=== PATIENT | female | born 1930 | race Caucasian/White ===

== ENCOUNTER 2016-05-31 11:11 | Outpatient (CLI) | payer MEDICARE ==
[2016-05-31] MEDS ORDERED: GADOBUTROL 7.5 MMOL/7.5 ML VIAL IVP ONE (12:45)
== END 2016-05-31 11:12 | disposition home or self-care (01) ==
DX: Z84.89 Family history of other specified conditions (principal); Z79.899 Other long term (current) drug therapy; Z80.3 Family history of malignant neoplasm of breast
CPT/HCPCS: 36415; 82565; A9585; C8908

== ENCOUNTER 2016-07-18 08:27 | Outpatient (CLI) | payer MEDICARE | END 2016-07-18 08:28 | disposition home or self-care (01) | DX: I10 Essential (primary) hypertension (principal); I48.91 Unspecified atrial fibrillation; K21.9 Gastro-esophageal reflux disease without esophagitis; N28.1 Cyst of kidney, acquired; G64 Other disorders of peripheral nervous system; E78.5 Hyperlipidemia, unspecified; M85.80 Other specified disorders of bone density and structure, unspecified site; E05.90 Thyrotoxicosis, unspecified without thyrotoxic crisis or storm; R41.3 Other amnesia; Z79.899 Other long term (current) drug therapy ==

== ENCOUNTER 2016-07-20 08:53 | Outpatient (CLI) | payer MEDICARE | END 2016-07-20 08:54 | disposition home or self-care (01) | LOC: LAB.F 08:53 | PROVIDERS: ATTEND Internal Medicine | DX: I10 Essential (primary) hypertension (principal); I48.91 Unspecified atrial fibrillation; K21.9 Gastro-esophageal reflux disease without esophagitis; N28.1 Cyst of kidney, acquired; G64 Other disorders of peripheral nervous system; E78.5 Hyperlipidemia, unspecified; M85.80 Other specified disorders of bone density and structure, unspecified site; E05.90 Thyrotoxicosis, unspecified without thyrotoxic crisis or storm; R41.3 Other amnesia | CPT/HCPCS: 83090 ==

== ENCOUNTER 2017-05-21 07:53 | Day surgery (SDC) | payer MEDICARE ==
[2017-05-21] MEDS ORDERED: LACTATED RINGERS 1,000 ML IV ONE (08:05)
[2017-05-21] MEDS ORDERED: LIDO GARGLE 30 ML BOTTLE ONE (09:41)
[2017-05-21] MEDS ORDERED: fentaNYL 100 MCG/2 ML VIAL IVP ONE (09:47)
[2017-05-21] MEDS ORDERED: MIDAZOLAM 2 MG/2 ML VIAL IVP ONE (09:47)
[2017-05-21 10:56] VITALS: BP 135/87
== END 2017-05-21 07:54 | disposition home or self-care (01) ==
LOC: SDS 07:53
PROVIDERS: ATTEND Surgery
PROC: 0DD68ZX Extraction of Stomach, Via Natural or Artificial Opening Endoscopic, Diagnostic (ICD-10-PCS; principal; 2017-05-21 09:00)
PROC: 0DJD8ZZ Inspection of Lower Intestinal Tract, Via Natural or Artificial Opening Endoscopic (ICD-10-PCS; 2017-05-21 09:00)
DX: Z12.11 Encounter for screening for malignant neoplasm of colon (principal); K21.9 Gastro-esophageal reflux disease without esophagitis; K44.9 Diaphragmatic hernia without obstruction or gangrene; K29.70 Gastritis, unspecified, without bleeding; K57.30 Diverticulosis of large intestine without perforation or abscess without bleeding; K64.8 Other hemorrhoids; K62.4 Stenosis of anus and rectum; Z80.0 Family history of malignant neoplasm of digestive organs
CPT/HCPCS: 43235; 87081; A9270; G0105; J7120

== ENCOUNTER 2017-10-11 09:53 | Outpatient (CLI) | payer MEDICARE ==
[2017-10-11] MEDS ORDERED: GADOBUTROL 7.5 MMOL/7.5 ML VIAL ONE (10:16)
[2017-10-11] MEDS ORDERED: GADOBUTROL 7.5 MMOL/7.5 ML VIAL IVP ONE (11:00)
--- NOTE | 2017-10-12 17:19 | MRI Report ---
Procedure Date: 10/11/2017 Accession Number: [id number] / [id number] Procedure: MRI - Brain W/WO CPT Code: FULL RESULT: EXAM: MRI BRAIN WITHOUT AND WITH CONTRAST EXAM DATE: 10/11/2017 11:09 AM. CLINICAL HISTORY: Other abnormalities of gait and mobility. COMPARISON: CT scan of the head without contrast 05/21/2014 and MRI of the brain without and with contrast 07/15/2011. TECHNIQUE: Multiplanar, multisequence T1-weighted and fluid-sensitive MR sequences of the brain were performed. Sequences optimized for routine evaluation. Other: None. IV Contrast: 6.5 mL Gadavist. FINDINGS: The diffusion-weighted images are normal. There is no evidence of acute or subacute cerebral infarction. There are small areas of T2 hyperintensity again demonstrated within the bilateral cerebral edson. The overall appearance would favor that of small perivascular spaces. This does not appear to be significantly changed compared to the 2012 MRI. The images are degraded by motion. There is fluid intensity within multiple bilateral mastoid air cells. 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 The FLAIR images demonstrate a few punctuate T2 hyperintensities within the subcortical, deep, and periventricular white matter. This is consistent with a mild degree of chronic small vessel ischemia. There is enlargement of the lateral ventricles and the third ventricle but not out of proportion to the enlargement of the cerebral sulci. This is consistent with a mild degree of generalized volume loss. There is a small focus of susceptibility at the cortex of the left occipital lobe (12-14, 1001). 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 Recommend correlation with history. This was not present on the 2012 MRI. The optic nerves demonstrate symmetric signal intensity and size. There is a small mucous retention cyst in the right maxillary sinus. The cerebral vascular flow voids are patent. The bilateral parotid spaces exhibit normal signal intensity. There is normal enhancement within the deep venous sinuses. There is normal enhancement within the brain parenchyma. IMPRESSION: 1. There is no evidence of acute or subacute cerebral infarction. 2. 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 Recommend correlation with history. This was not present on the 2012 MRI. 3. There is mild degree of chronic small vessel ischemia and mild degree of generalized volume loss. 4. 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
== END 2017-10-11 09:54 | disposition home or self-care (01) ==
LOC: DI 09:53
PROVIDERS: ATTEND Internal Medicine
DX: R26.89 Other abnormalities of gait and mobility (principal)
CPT/HCPCS: 70553; A9585

== ENCOUNTER 2018-08-07 10:20 | Outpatient (CLI) | payer MEDICARE | END 2018-08-07 10:21 | disposition home or self-care (01) | LOC: DI 10:20 | PROVIDERS: ATTEND Internal Medicine Cardiovascular Disease | DX: I35.1 Nonrheumatic aortic (valve) insufficiency (principal); I51.7 Cardiomegaly; R19.00 Intra-abdominal and pelvic swelling, mass and lump, unspecified site | CPT/HCPCS: 93306 ==

== ENCOUNTER 2018-11-28 07:27 | Day surgery (SDC) | payer MEDICARE ==
[2018-11-28] MEDS ORDERED: fentaNYL 100 MCG/2 ML VIAL IVP ONE (07:28)
[2018-11-28] MEDS ORDERED: MIDAZOLAM 2 MG/2 ML VIAL IVP ONE (07:28)
[2018-11-28] MEDS ORDERED: LIDO GARGLE 30 ML BOTTLE ONE (07:32)
[2018-11-28] MEDS ORDERED: LACTATED RINGERS 1,000 ML IV ONE (07:39)
--- NOTE | 2018-11-28 08:36 | SURGERY HX AND PHYSICAL(T) ---
Surgical History & Physical - PMH/PSH/Social Hx Does the pt have a hx of MRSA?: No Eyes, Ears, Nose, Throat: Other Cardiovascular: Hypertension, High cholesterol, Atrial fibrillation Respiratory: None Skin: None Endocrine/Autoimmune: None Gastrointestinal: GERD Urinary: None Musculoskeletal: Osteoporosis Psychiatric: None General: Appendectomy Eyes Ears Nose Throat (EENT): Tonsil/Adenoidectomy Substance Use and Type:  - Home Meds and Allergies Home Medications: Aspirin [Adult Low Dose Aspirin EC] 81 mg PO DAILY 05/21/17 Metoprolol Succinate 50 mg PO DAILY 05/21/17 Valsartan 40 mg PO DAILY 05/21/17 Allergies/Adverse Reactions: Allergies Allergy/AdvReac Type Severity Reaction Status Date / Time Latex, Natural Rubber Allergy Severe Rash Verified 05/21/17 08:18 adhesive tape Allergy Rash Verified 05/21/17 08:19 - Vital Signs Heart Rate: 64 Blood Pressure: 168/68 Temperature: 36.8 C Respiratory Rate: 14 O2 Saturation: 100 Weight (kg): 57.2 kg Height: 1.57 m - Patient Review Patient Review: Problems were reviewed with the patient during this visit. Medications were reviewed with the patient during this visit. Allergies were reviewed this patient during this visit. Pertinent Tests Reviewed: All pertitent test for this patient were reviewed. - Assessment & Plan Assessment and Plan: This very pleasant 88-year-old female was seen this year on September 25, 2018 for the very same reasons that she is seen today. She initially scheduled her procedure on October 2018 for reasons unknown to me this was now delayed until today. Because of this she needs a repeat history and physical. The patient continues to complain of acid reflux, difficulty swallowing, and has a sensation of food getting stuck in her throat. She denies any nausea, vomiting, hematemesis, abdominal pain, difficulty breathing or unexplained weight loss. 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 Allergies: * LATEX (Critical) * RUBBER (Critical) * TAPE (Critical) Medications: ASPIRIN EC 81 MG ORAL TABLET DELAYED RELEASE (ASPIRIN) Take one tablet by mouth daily; Route: ORAL VALSARTAN 40 MG ORAL TABLET (VALSARTAN) Take one tablet by mouth daily; Route: ORAL METOPROLOL SUCCINATE ER 50 MG ORAL TABLET EXTENDED RELEASE 24 HOUR (METOPROLOL SUCCINATE) Take two tablet by mouth daily; Route: ORAL Past Medical History: HTN Intermittent Atrial Fibrillation Moderate AI GERD, Arroyo's Esophagus Renal cysts Peripheral neuropathy Refuses EMG/NCV testing Hyperlipidemia Osteopenia Low TSH Chronic cough Frequent indigestion Heartburn Acid Reflux Past Surgical History: T&A age 12 Appendectomy Ovarian cyst Hysterectomy Left breast cyst Renal cysts Right stapedectomy cystoscopy ureteral stent placement Loop recorder implant Family History Summary: Father of pneumonia Brother, from colon CA 70's Social History Summary: Patient has never smoked. Patient has never used smokeless tobacco. Passive Smoke: N Alcohol Use: Y Drug Use: N HIV/High Risk: N Regular Exercise: Y Review of Systems CONSTITUTIONAL: No weight loss, fever, chills, weakness, or fatigue. HEENT: Eyes: No visual loss, blurred vision, double vision or yellow sclerae. Ears, Nose, Throat: No hearing loss, sneezing, congestion, runny nose, or sore throat. SKIN: No rash or itching. RESPIRATORY: No shortness of breath, cough or sputum. GASTROINTESTINAL: No anorexia, nausea, vomiting or diarrhea. No abdominal pain or blood. GENITOURINARY: No dysuria. Not . NEUROLOGICAL: No headache, dizziness, syncope, paralysis, ataxia, numbness or tingling in the extremities. No change in bowel or bladder control. MUSCULOSKELETAL: No muscle, back pain, joint pain or stiffness. HEMATOLOGIC: No anemia, bleeding or bruising. LYMPHATICS: No enlarged nodes. No history of splenectomy. PSYCHIATRIC: No history of depression or anxiety. ENDOCRINOLOGIC: No reports of sweating, cold or heat intolerance. No polyuria or polydipsia. ALLERGIES: No history of asthma, hives, eczema or rhinitis. Physical Exam General: Evaluated in room 2 at [facility]'s primary care physician unit, 88 year old female, appears stated age, well developed, well nourished HEENT: Normocephalic, atraumatic, extraocular movement intact, mucous membranes pink and moist, sclera anicteric and not injected Neck: Supple without pain on palpation, mass or bruit Cardiac: Regular rate and rhythm without rub, gallop, or murmur Chest: Clear to auscultation bilaterally Abdomen: Soft, nontender, normoactive bowel sounds, no hepatomegaly, no splenomegaly Genitourinary: Deferred Rectal: Deferred Extremities: No gross neurovascular problem, no clubbing, cyanosis or edema Gait: Not evaluated as the patient was on a gurney. Psychiatric: Alert and oriented to person place and time, asks and answers questions appropriately, mood and affect appropriate Impression & Recommendations: GERD Esophagogastroduodenoscopy with possible biopsies and/or polypectomies. Indications, procedure, alternatives and risks including but not limited to perforation requiring operative repair, bleeding with its risks, and were fully explained to her. In the office, I candido diagrams explaining the anatomy and the proposed procedure and handed it to her. In the office, conscious sedation was discussed at length with her as were its risks including but not limited to loss of airway, aspiration, respiratory depression, and not enough relief of pain and anxiety and she indicated that she wished to have conscious sedation for her procedure. In the office, I explained that MAC anesthesia is associated with a higher incidence of perforation. Review of her history does not reveal any significant systemic disease that would contraindicate use of conscious sedation or MAC anesthesia. All questions were fully answered. Verbal and written consent was obtained. The patient in preparation for her esophagogastroduodenoscopy has been n.p.o. 20 minutes of [id number] time spent with the patient the majority of which was spent in discussion and in the generation of this document Pocket disclaimer: This document was created in part using voice recognition technology. Because of the inherent limitations of the system ([employer] user manual states that the licensee understands that speech recognition is a statistical process and that recognition errors are inherent in the process), occasional same sounding word substitutions and grammatical errors do occur and persist despite proofreading. Please read this document for context.
[2018-11-28] MEDS ORDERED: BENZOCAINE/TETRACAINE/BUTAMBEN 20 GM TOP ONE (08:40)
[2018-11-28] MEDS ORDERED: LIDO GARGLE 30 ML BOTTLE PO ONE (08:40)
[2018-11-28 09:58] VITALS: BP 156/70
== END 2018-11-28 07:28 | disposition home or self-care (01) ==
LOC: SDS 07:27
PROVIDERS: ATTEND Surgery
PROC: 0DJ08ZZ Inspection of Upper Intestinal Tract, Via Natural or Artificial Opening Endoscopic (ICD-10-PCS; principal; 2018-11-28 09:00)
DX: K22.8 Other specified diseases of esophagus (principal); K21.9 Gastro-esophageal reflux disease without esophagitis; I10 Essential (primary) hypertension; E78.00 Pure hypercholesterolemia, unspecified; I48.91 Unspecified atrial fibrillation; M81.0 Age-related osteoporosis without current pathological fracture; Z79.82 Long term (current) use of aspirin; I35.1 Nonrheumatic aortic (valve) insufficiency; G62.9 Polyneuropathy, unspecified; E78.5 Hyperlipidemia, unspecified; R94.6 Abnormal results of thyroid function studies; R05 Cough
CPT/HCPCS: 43235; A9270; J7120

== ENCOUNTER 2019-09-20 12:39 | Outpatient (CLI) | payer MEDICARE ==
--- NOTE | 2019-09-22 14:34 | MRI Report ---
PROCEDURE: Brain W/O INDICATIONS: LATE ONSET ALZHEIMERS TECHNIQUE: Noncontrast axial T1 spin echo, axial T2 fast spin echo, sagittal and axial FLAIR, coronal T2 fast sp in echo, axial gradient echo, axial diffusion and ADC through the brain. COMPARISON: MRI brain 10/11/2017 FINDINGS: Image quality: Excellent. The ventricular system and cortical sulci demonstrate atrophy, consistent for patient's stated age. There are areas of hyperintense T2/FLAIR signal in the periventricular and subcortical white matter. There is no acute intra or extra-axial fluid collection. No acute hemorrhage, mass lesion or midlin e shift. Brainstem is unremarkable. There are no areas of restricted diffusion. Globes are symmetr ical. Sinuses are aerated. Osseous structures are intact. IMPRESSION: 1. No acute intracranial process. 2. Moderate atrophy and chronic microvascular ischemic changes. Reviewed by: Alexandra Goodman MD on 09/22/2019 2:32 PM PDT Approved by: Alexandra Goodman MD on 09/22/2019 2:32 PM PDT Station ID: [id number]
== END 2019-09-20 12:40 | disposition home or self-care (01) ==
LOC: DI 12:39
PROVIDERS: ATTEND Psychiatry & Neurology Neurology
DX: G30.1 Alzheimer's disease with late onset (principal); F02.80 Dementia in other diseases classified elsewhere, unspecified severity, without behavioral disturbance, psychotic disturbance, mood disturbance, and anxiety
CPT/HCPCS: 70551

== ENCOUNTER 2020-02-23 08:00 | Outpatient (CLI) | payer MEDICARE ==
--- NOTE | 2020-02-23 14:47 | XRAY Report ---
PROCEDURE: Toe(s) LT INDICATIONS: TOE PAIN TECHNIQUE: 3 views of the second toe(s) acquired. COMPARISON: None FINDINGS: Bones: No fractures or dislocations. Moderate degenerative change in the forefoot. No suspicious bon y lesions. Bones appear osteopenic. Soft tissues: No suspicious soft tissue densities. No radiopaque foreign body. IMPRESSION: No fracture or dislocation identified. Reviewed by: Dagoberto Guevara MD on 02/23/2020 1:46 PM [facility] Approved by: Dagoberto Guevara MD on 02/23/2020 1:46 PM [place] Station ID: [id number]
--- NOTE | 2020-02-23 14:50 | XRAY Report ---
PROCEDURE: Hips 3-4V BILAT INDICATIONS: PELVIC PAIN, LEFT TECHNIQUE: 3 views of the left hip and 2 views of the right hip. COMPARISON: None. FINDINGS: Bones: No fractures or dislocations. Mild symmetric bilateral joint space narrowing. No subchondral collapse. No suspicious bony lesions. The visualized pelvic ring appears intact. Soft tissues: No suspicious soft tissue calcifications or masses. IMPRESSION: No fracture or dislocation. Mild bilateral hip DJD. Reviewed by: Dagoberto Guevara MD on 02/23/2020 1:48 PM [facility] Approved by: Dagoberto Guevara MD on 02/23/2020 1:48 PM [facility] Station ID: [id number]
== END 2020-02-23 23:59 ==
LOC: DI.S 08:00
PROVIDERS: ATTEND Physician Assistant Medical
DX: M16.0 Bilateral primary osteoarthritis of hip (principal); M79.676 Pain in unspecified toe(s)

== ENCOUNTER 2020-11-30 10:02 | Outpatient (CLI) | payer MEDICARE ==
--- NOTE | 2020-11-30 10:49 | XRAY Report ---
PROCEDURE: Chest 2 View X-Ray INDICATIONS: CHEST PAIN TECHNIQUE: 2 view(s) of the chest. COMPARISON: None. FINDINGS: Surgical changes and devices: Cardiac device is seen projecting in left infrahilar region.. Lungs and pleura: No pleural effusions or pneumothorax. Lungs are clear. Mediastinum: Mediastinal contours are normal. Heart size is normal. Bones and chest wall: No suspicious bony abnormalities. Soft tissues appear unremarkable. IMPRESSION: No acute cardiopulmonary pathology. Reviewed by: Roddy Sanchez MD on 11/30/2020 10:48 AM PDT Approved by: Roddy Sanchez MD on 11/30/2020 10:48 AM PDT Station ID: [id number]
== END 2020-11-30 10:03 | disposition home or self-care (01) ==
LOC: DI.S 10:02
PROVIDERS: ATTEND Internal Medicine
DX: R07.9 Chest pain, unspecified (principal)

== ENCOUNTER 2021-02-27 10:54 | Outpatient (CLI) | payer MEDICARE | END 2021-02-27 10:55 | disposition critical access hospital (66) | LOC: EMS 10:54 | DX: I46.9 Cardiac arrest, cause unspecified (principal) | CPT/HCPCS: A0425; A0433 ==

== ENCOUNTER 2021-02-27 11:23 | Emergency (ER) | payer MEDICARE ==
[2021-02-27] MEDS ORDERED: EPINEPHrine ABBOJECT 1 MG/10 ML SYRINGE IVP STA (11:47)
--- NOTE | 2021-02-27 11:49 | ED Physician Documentation ---
PD HPI CPR - Stated complaint Stated Complaint: ROSC - History obtained from History obtained from: EMS - Additional information Additional information: 89-year-old woman brought in by ambulance. She had collapsed at home and was found to have agonal breathing and BP pulseless. Brought in by EMS with about a 1 hour downtime. During that time she had pulses for an estimated 10 minutes, but the rest of the time she was pulseless in a PEA. Prior to arrival had received 5 rounds of epinephrine and ongoing CPR. Review of Systems Unable to obtain: Intubated PD PAST MEDICAL HISTORY - Past Medical History Cardiovascular: Hypertension, High cholesterol, Atrial fibrillation Respiratory: None Endocrine/Autoimmune: None GI: GERD : None HEENT: Other Psych: None Musculoskeletal: Osteoporosis Derm: None - Past Surgical History General: Appendectomy /TOUCH UP PAINTER HAND: Hysterectomy, Oophrectomy, Other HEENT: Tonsil/Adenoidectomy - Present Medications Home Medications: Ambulatory Orders Medication Instructions Recorded Confirmed Aspirin [Adult Low Dose Aspirin EC] 81 mg PO DAILY 05/21/17 11/28/18 Metoprolol Succinate 50 mg PO DAILY 05/21/17 11/28/18 Valsartan 40 mg PO DAILY 05/21/17 11/28/18 - Allergies Allergies/Adverse Reactions: Allergies Allergy/AdvReac Type Severity Reaction Status Date / Time Latex, Natural Rubber Allergy Severe Rash Verified 02/27/21 11:50 adhesive tape Allergy Rash Verified 02/27/21 11:50 PD ED PE NORMAL - Vitals Vital signs reviewed: Yes - General General: Other (She is intubated and unresponsive on arrival with some agonal breathing over the bagging with a lot of blood in the endotracheal tube.) - HEENT HEENT: Other (Fixed and dilated pupils) - Cardiac Cardiac: Other (Unable to hear heart sounds) - Respiratory Respiratory: Other (Rhonchorous/rales bilaterally) Results - Vitals Vitals: Oxygen O2 Source Room air - EKG (time done) 1132. Rate: Rate (enter#) (102) Rhythm: Atrial fibrillation Intervals: RBBB Ischemia: ST depression (Inferior and lateral ST depression) PD MEDICAL DECISION MAKING - ED course ED course: On arrival she had pulses but these quickly diminished and she was started on increasing doses of Levophed to support her blood pressure. We were initially getting blood pressures with the 60 systolic and very low diastolics. We were preparing for central line and arterial line and a chest x-ray was done which my "wet read on" shows pulmonary edema. She arrested again, initially in a PEA but then degenerating into asystole despite 2 more rounds of epinephrine and the code was called at 11:38 AM. Her of 71 years was brought to the bedside and consoled. Departure - Departure Disposition: 20 Clinical Impression: Sudden
--- NOTE | 2021-02-27 13:03 | XRAY Report ---
PROCEDURE: Chest 1 View X-Ray INDICATIONS: cardiac arrest COMMENTS: CARDIAC ARREST, ACTIVE CPR, ET TUBE PLACEMENT PRIORS: 11.30 TECHNIQUE: One view of the chest was acquired. COMPARISON: 11/30/2020 FINDINGS: Surgical changes and devices: Endotracheal tube is well-positioned 3 cm above the ravindra. Lungs and pleura: Pulmonary edema is present. No focal consolidation. No pneumothorax or pleural ef fusion. Mediastinum: Mediastinal contours appear normal. Heart size is normal. Bones and chest wall: No suspicious bony lesions. Overlying soft tissues appear unremarkable. IMPRESSION: 1. Pulmonary edema. 2. Endotracheal tube appears well-positioned. Reviewed by: Marky Santos on 02/27/2021 12:02 PM SON Approved by: Marky Santos on 02/27/2021 12:02 PM [facility] Station ID: [id number]
== END 2021-02-27 11:38 | disposition expired ==
LOC: EDUNIT# → ED 11:23
DX: I46.9 Cardiac arrest, cause unspecified (principal); R55 Syncope and collapse; I10 Essential (primary) hypertension; I48.91 Unspecified atrial fibrillation; I45.10 Unspecified right bundle-branch block; Z79.82 Long term (current) use of aspirin
CPT/HCPCS: 92950; 93005; 96374; 99281